=== PATIENT | male | born 1995 | race Caucasian/White ===

== ENCOUNTER 2020-01-01 07:32 | Day surgery (SDC) | payer BC ==
[~2020-01-01] VITALS: Ht 170.2 cm; Wt 95.3 kg
[~2020-01-01 07:32] MED LIST: AUGMENTIN500 MG OR; KEFLEX500 MG OR; NO MEDS
[2020-01-01] MEDS ORDERED: MOTRIN800 MG PO (10:41)
[2020-01-01] MEDS ORDERED: PERCOCET 5/325M1 TAB PO (10:41)
[2020-01-01 11:21] VITALS: BP 118/82
== END 2020-01-01 11:40 | disposition home or self-care (01) | DRG 352 ==
LOC: ORM 07:32
PROVIDERS: ATTEND Surgery
PROC: 0YU50JZ Supplement Right Inguinal Region with Synthetic Substitute, Open Approach (ICD-10-PCS; principal; 2020-01-01)
PROC: 0VBF0ZZ Excision of Right Spermatic Cord, Open Approach (ICD-10-PCS; 2020-01-01)
DX: K40.30 Unilateral inguinal hernia, with obstruction, without gangrene, not specified as recurrent (principal); D17.6 Benign lipomatous neoplasm of spermatic cord; Z20.828 Contact with and (suspected) exposure to other viral communicable diseases
CPT/HCPCS: C9290; J0131